=== PATIENT | male | born 1970 | race Caucasian/White ===

== ENCOUNTER 2017-02-23 16:01 | Emergency (ER) | payer SELFPAY ==
[~2017-02-23] VITALS: Ht 190.5 cm; Wt 81.0 kg
[~2017-02-23 16:01] MED LIST: DICL75 PO; HYDR-3533 PO
[2017-02-23 16:06] VITALS: BP 110/79; PULSE 81; RESP 16; TEMP 98.1; O2SAT 98
--- NOTE | 2017-02-23 16:22 | PD ---
HPI Chief Complaint: Skin Problem Time Seen by Provider: 16:22 Travel History International Travel<30 days: No Contact w/Intl Traveler<30days: No Traveled to known affect area: No History of Present Illness HPI 46-year-old male presents the emergency Department with a red sore swollen abscess to the right dorsal ring finger for approximate 4 days. Patient is been trying to drain it himself. He feels this could be due to a spider bite. Patient works construction. He denies fever, chills, or streaking. It has drained a small amount of pus, but it has gotten worse over the last 24 hours. Patient reports no history of MRSA in the past. He has no known drug allergies. [facility] Past Medical History Medical History: Denies Significant Hx Tetanus Vaccination: Unknown Influenza Vaccination: No Social History Alcohol Use: Yes (Rare) Tobacco Use: Yes (1ppd) Substance Use: No Allergies-Medications (Allergen,Severity, Reaction): Coded Allergies: No Known Allergies (Unverified , 02/23/17) Reported Meds & Prescriptions Reported Meds & Active Scripts Active No Active Prescriptions or Reported Medications Review of Systems Except as stated in HPI: all other systems reviewed are Neg General / Constitutional: No: Fever Eyes: No: Visual changes HENT: No: Headaches Cardiovascular: No: Chest Pain or Discomfort Respiratory: No: Shortness of Breath Gastrointestinal: No: Abdominal Pain Genitourinary: No: Dysuria Musculoskeletal: No: Pain Skin: No Rash Neurologic: No: Weakness Psychiatric: No: Depression Endocrine: No: Polydipsia Hematologic/Lymphatic: No: Easy Bruising Physical Exam Narrative GENERAL: Patient appears in mild to moderate distress. SKIN: Warm and dry. Normal color. Normal turgor. Patient has a erythematous indurated abscess to the dorsal right ring finger with pointing but no spontaneous drainage. There is no streaking or lymphangitis. It does not involve the joint. HEAD: Atraumatic. Normocephalic. EYES: Pupils equal and round. No scleral icterus. No injection or drainage. ENT: No nasal bleeding or discharge. Mucous membranes pink and moist. NECK: Trachea midline. No JVD. CARDIOVASCULAR: Regular rate and rhythm. RESPIRATORY: No accessory muscle use. Clear to auscultation. Breath sounds equal bilaterally. GASTROINTESTINAL: Abdomen soft, non-tender, nondistended. Hepatic and splenic margins not palpable. MUSCULOSKELETAL: Extremities without clubbing, cyanosis, or edema. No obvious deformities. NEUROLOGICAL: Awake and alert. No obvious cranial nerve deficits. Motor grossly within normal limits. Five out of 5 muscle strength in the arms and legs. Normal speech. PSYCHIATRIC: Appropriate mood and affect; insight and judgment normal. Data Data Last Documented VS Vital Signs Date Time Temp Pulse Resp B/P Pulse Ox O2 Delivery O2 Flow Rate FiO2 02/23/17 16:06 98.1 81 16 110/79 98 Orders Lidocai-Epi 1%-1:100,000 Inj (Xylocaine- (02/23/17 16:30) Abscess Culture And Gram Stain (02/23/17 16:29) [facility] Medical Decision Making Medical Screen Exam Complete: Yes Emergency Medical Condition: Yes Differential Diagnosis Cellulitis. Abscess. MRSA. Narrative Course Patient is medically stable at time of exam. I&D of abscess is performed. Dressing is placed. Wound culture sent to the lab. Patient was treated with Bactrim twice a day 7 days. Patient is given Bactroban ointment as well. Patient take Tylenol or ibuprofen as needed. Patient follow up if symptoms do not resolve or worsen in the next several days. Procedures Procedure Narrative After the risks and benefits were discussed the following procedure was performed: INCISION AND DRAINAGE OF ABSCESS: The area was prepped and was sterilely draped. A digital block of 1 % Xylocaine with epi with a total number to mL was used to anesthetize the area. The area was properly anesthetized. A number 11 scalpel was used to make a 0.5-cm incision across the area of the abscess. Cultures were obtained. The abscess was drained an irrigated with normal saline. Sterile dressing applied. Patient advised to have packing removed in two days. Diagnosis Primary Impression: Abscess of right ring finger Additional Impression: MRSA (methicillin resistant Staphylococcus aureus) Referrals: Primary Care Physician Patient Instructions: Abscess Incision and Drainage (ED), General Instructions , MRSA (Methicillin Resistant Staphylococcus Aureus) (ED) Departure Forms: Work Release Enter return to work date: Feb 26, 2017 Additional Instructions: I&D of abscess is performed. Dressing is placed. Wound culture sent to the lab. Patient was treated with Bactrim twice a day 7 days. Patient is given Bactroban ointment as well. Patient take Tylenol or ibuprofen as needed. Patient follow up if symptoms do not resolve or worsen in the next several days. Scripts No Active Prescriptions or Reported Meds Disposition: 01 DISCHARGE HOME Condition: Stable Gera Baez Feb 23, 2017 16:22
[2017-02-23] MEDS ORDERED: LIDOCAINE 1%/EPINEPHrine 1:100,000 SOLN 20 ML VIAL INFIL ONE (16:30)
[2017-02-23] MEDS ORDERED: IBUP800T23 PO (17:00)
[2017-02-23] MEDS ORDERED: MUPI2%T TOPICAL (17:00)
[2017-02-23] MEDS ORDERED: BACT800T5 PO (17:00)
== END 2017-02-23 17:08 | disposition home or self-care (01) ==
LOC: PHEFT 16:01
DX: L02.511 Cutaneous abscess of right hand (principal); B95.62 Methicillin resistant Staphylococcus aureus infection as the cause of diseases classified elsewhere; F17.210 Nicotine dependence, cigarettes, uncomplicated
CPT/HCPCS: 10060; 86403; 87070; 87186; 87205

== ENCOUNTER 2018-01-17 20:47 | Emergency (ER) | payer SELFPAY ==
[~2018-01-17] VITALS: Ht 190.5 cm; Wt 87.0 kg
[~2018-01-17 20:47] MED LIST changes: +BACT800T5 PO; -DICL75 PO; -HYDR-3533 PO; +IBUP1TAB7 PO; +MUPI2%T TOPICAL
[2018-01-17 21:06] VITALS: BP 160/75; PULSE 72; RESP 18; TEMP 98.3; O2SAT 96
--- NOTE | 2018-01-17 21:29 | PD ---
HPI Chief Complaint: Oral / Dental Pain or Problem Time Seen by Provider: 21:26 Travel History International Travel<30 days: No Contact w/Intl Traveler<30days: No Traveled to known affect area: No History of Present Illness HPI 47-year-old male came to the emergency room with history of dental pain. Patient says that this is been going on for past 4 days. He has a broken tooth which is his right upper incisor. That has been bothering him. He thinks it's infected. Patient does not have insurance and has not seen a dentist. Vital signs otherwise stable. PFSH Past Medical History Narrative Medical List of his past medical, surgical, social and family history is reviewed from the nursing note. Tetanus Vaccination: Unknown Influenza Vaccination: No Social History Alcohol Use: Yes (Rare) Tobacco Use: Yes (1ppd) Substance Use: No Allergies-Medications (Allergen,Severity, Reaction): Coded Allergies: *MDRO Multi-Drug Resistant Organism (Verified Adverse Reaction, Unknown, ) MRSA (finger)-02/23/17 Comments List of his allergies reviewed from the nursing note. Reported Meds & Prescriptions Reported Meds & Active Scripts Active Amoxicillin 500 Mg Cap 500 Mg PO BID 10 Days Ibuprofen 600 Mg Tab 600 Mg PO Q6H PRN Narrative Medication List of his home medications reviewed from the nursing note. Review of Systems Except as stated in HPI: all other systems reviewed are Neg HENT: Positive: Dental Difficulties Physical Exam Narrative GENERAL: Awake, alert, moderate distress SKIN: Focused skin assessment warm/dry. HEAD: Atraumatic. Normocephalic. EYES: Pupils equal and round. No scleral icterus. No injection or drainage. ENT: No nasal bleeding or discharge. Mucous membranes pink and moist. #6 tooth is caries and broken. No gingival swelling or fluctuance NECK: Trachea midline. No JVD. CARDIOVASCULAR: Regular rate and rhythm. No murmur appreciated. RESPIRATORY: No accessory muscle use. Clear to auscultation. Breath sounds equal bilaterally. GASTROINTESTINAL: Abdomen soft, non-tender, nondistended. Hepatic and splenic margins not palpable. MUSCULOSKELETAL: No obvious deformities. No clubbing. No cyanosis. No edema. NEUROLOGICAL: Awake and alert. No obvious cranial nerve deficits. Motor grossly within normal limits. Normal speech. PSYCHIATRIC: Appropriate mood and affect; insight and judgment normal. Data Data Last Documented VS Vital Signs Date Time Temp Pulse Resp B/P (MAP) Pulse Ox O2 Delivery O2 Flow Rate FiO2 01/17/18 22:26 75 18 150/80 (103) 98 01/17/18 21:06 98.3 Orders Orders Acetamin-Hydrocod 325-5 Mg ([place] 5-325 (01/17/18 21:45) Amoxicillin (Trimox) (01/17/18 21:45) Ibuprofen (Motrin) (01/17/18 21:45) Ed Discharge Order (01/17/18 21:44) MDM Medical Decision Making Medical Screen Exam Complete: Yes Emergency Medical Condition: Yes Medical Record Reviewed: Yes Differential Diagnosis Dental caries, dentalgia Narrative Course Patient was comfortable taking pain medication. I let him know that he needs to see a dentist as soon as possible. He'll go home with prescription for pain medication and antibiotics. Procedures EKG Prior to Arrival: No Diagnosis Primary Impression: Dentalgia Additional Impression: Dental caries Referrals: Dentist Primary Care Physician Additional Instructions: You need to follow up with a dentist as soon as possible. Take the medications as per the prescription direction. Med/Other Pt SpecificInfo: Prescription(s) given Scripts Amoxicillin (Amoxicillin) 500 Mg Cap 500 MG PO BID for Infection for 10 Days, #20 CAP 0 Refills Prov: Radha Dooley MD 01/17/18 Ibuprofen (Ibuprofen) 600 Mg Tab 600 MG PO Q6H Y for Pain/Inflammation, #40 TAB 0 Refills Prov: Radha Dooley MD 01/17/18 Disposition: 01 DISCHARGE HOME Condition: Stable Radha Dooley MD Jan 17, 2018 21:29
[2018-01-17] MEDS ORDERED: IBUP-232 PO (21:43)
[2018-01-17] MEDS ORDERED: AMOX500C PO (21:43)
[2018-01-17] MEDS ORDERED: IBUPROFEN 600 MG TAB PO ONE (21:45)
[2018-01-17] MEDS ORDERED: AMOXICILLIN (TRIHYDRATE) 500 MG CAP PO ONE (21:45)
[2018-01-17] MEDS ORDERED: ACETAMINOPHEN/HYDROcodone 325 MG/5 MG TAB PO ONE (21:45)
[2018-01-17 22:26] VITALS: BP 150/80
== END 2018-01-17 22:33 | disposition home or self-care (01) ==
LOC: PHED 20:47
DX: K08.89 Other specified disorders of teeth and supporting structures (principal); K02.9 Dental caries, unspecified; F17.210 Nicotine dependence, cigarettes, uncomplicated
CPT/HCPCS: 99283